=== PATIENT | female | born 1985 | race Caucasian/White ===

== ENCOUNTER 2018-12-16 20:00 | Emergency (ER) | payer OTHER ==
[~2018-12-16] VITALS: Ht 157.5 cm; Wt 50.8 kg
[2018-12-16] MEDS ORDERED: LEVOTHYROXINE 25 MCG TABLET (20:13)
--- NOTE | 2018-12-16 20:26 | NUR ---
Red cloudy urine specimen collected and sent to lab,
[2018-12-16 20:33] LABS: *BLOOD, URINE 3+ (NEGATIVE); *COLOR,URINE RED (YELLOW); *KETONES,URINE 2+ (NEGATIVE); LEUKOCYTE ESTERASE ,URINE 3+ (NEGATIVE); NITRITE, URINE POSITIVE (NEGATIVE); UGLUCOSE NEGATIVE (NEGATIVE)
[2018-12-16 20:36] LABS: *URINE HCG, QUAL NEGATIVE (NEGATIVE)
--- NOTE | 2018-12-16 20:40 | NUR ---
at bedside for MSE
[2018-12-16 20:43] LABS: *BILIRUBIN,URIN NEGATIVE (NEGATIVE); *CLARITY,URINE BLOODY (CLEAR)
[2018-12-16 20:48] LABS: MUCUS,URINE MODERATE /LPF (0-FEW); RBC,URINE TNTC /HPF (0-3); SQUAMOUS EPITHELIAL CELL,UR FEW /HPF (NONE SEEN); WBC,URINE 80-100 /HPF (0-3)
[2018-12-16 20:50] LABS: BACTERIA,URINE FEW /HPF (NONE SEEN)
[2018-12-16] MEDS ORDERED: NITROFURANTOIN/NITROFURAN MAC 100 MG CAPSULE PO ONE (21:00)
[2018-12-16] MEDS ORDERED: PHENAZOPYRIDINE HCL 100 MG TABLET PO ONE (21:00)
[2018-12-16] MEDS ORDERED: PHENAZOPYRIDINE HCL 100 MG TABLET ONE (21:01)
[2018-12-16] MEDS ORDERED: NITROFURANTOIN/NITROFURAN MAC 100 MG CAPSULE ONE (21:01)
--- NOTE | 2018-12-16 21:03 | NUR ---
Patient discharged to home in stable conditon. Written and verbal after care instructions given. Patient verbalizes understanding of instructions. Pt. d/c w/ prescriptions per MD order, d/c papers signed, all belongings w/ pt., ID band removed, ambulated off unit w/ steady gait, NAD
== END 2018-12-16 21:11 | disposition home or self-care (01) ==
LOC: ER 20:03
DX: N30.91 Cystitis, unspecified with hematuria (principal); E03.9 Hypothyroidism, unspecified; Z79.899 Other long term (current) drug therapy
CPT/HCPCS: 84703; 87077; 87086; A4663